=== PATIENT | female | born 1995 | race Caucasian/White ===

== ENCOUNTER 2016-12-16 08:41 | Emergency (ER) | payer OTHER ==
[~2016-12-16] VITALS: Ht 167.6 cm; Wt 56.2 kg
[2016-12-16 08:52] VITALS: Ht 167.6 cm; Wt 56.2 kg
[2016-12-16] MEDS ORDERED: SODIUM CHLORIDE 0.9% 1000ML 1,000 ML IV STA ×2 (09:29→13:32)
--- NOTE | 2016-12-16 09:36 | EMERGENCY ROOM VISIT NOTE ---
History First contact with patient: 09:08 Chief Complaint: FEVER Stated Complaint: FEVER, SIDE/BACK PAIN History of Present Illness The patient is a 21 year old female who presents to the Emergency Room with complaints of fever. The patient states that she has had a fever for the last 6 days. She states that she has had some arthralgias and myalgias. She states the fever has come and gone. She reports pain in the right side of the abdomen. She states that her urine is malodorous but she denies any dysuria, urgency, frequency. The patient was seen at urgent care and started on Tamiflu for influenza. The patient has not had any cough, earache, sore throat, runny nose. She has not had any diarrhea or vomiting. Review of Systems A 10 system review of systems was completed with positives and pertinent negatives listed in the HPI. Past Medical/Surgical History None Social History Smoking Status: Never Smoker Marital Status: single Housing Status: lives with family Occupation Status: [employer] student Current/Historical Medications Scheduled Escitalopram Oxalate (Lexapro), 10 MG PO DAILY Ethinyl Estrad/Norgestimate (Sprintec 28), 1 TAB PO DAILY Ondasetron Odt (Zofran Odt), 4 MG SL Q6H Oseltamivir Phosphate (Tamiflu), 75 MG PO BID Sulfa/Trimethoprim (Bactrim Ds 800MG/160MG), 1 TAB PO BID Scheduled PRN Ibuprofen Tab (Advil), 400 MG PO Q6H PRN for Pain or Fever Allergies Coded Allergies: No Known Allergies (Unverified , 12/16/16) Physical Exam Vital Signs Date Time Temp Pulse Resp B/P Pulse Ox O2 Delivery O2 Flow Rate FiO2 12/16/16 15:15 67 18 94/50 100 Room Air 12/16/16 14:28 63 18 90/44 100 Room Air 12/16/16 11:17 37.2 12/16/16 10:38 70 102/59 99 12/16/16 08:52 38.1 93 17 103/66 97 Room Air Physical Exam VITALS: Vitals are noted on the nurse's note and reviewed by myself. Vital signs stable. The patient is febrile with temperature 38.1F GENERAL: This is a 21-year-old female, in no acute distress, nondiaphoretic, well-developed well-nourished. SKIN: The skin was without rashes, erythema, edema, or bruising. There is no tenting of the skin. Capillary reflex less than 2 seconds. HEAD: Normocephalic atraumatic. EARS: The external ears are normal in appearance. EYES: Pupils equal round and reactive to light and accommodation. Conjunctivae without injection, sclerae without icterus. Extraocular movements intact. NOSE: Patent, turbinates without inflammation or discharge. MOUTH: Mucous membranes moist. Tonsils are not enlarged. Pharynx without erythema or exudate. Uvula midline. Airway patent. Tongue does not deviate. NECK: Supple without nuchal rigidity. No lymphadenopathy. No thyromegaly. Cervical spine is nontender. No JVD. HEART: Regular rate and rhythm without murmurs gallops or rubs. LUNGS: Clear to auscultation bilaterally without wheezes, rales or rhonchi. No retractions or accessory muscle use. ABDOMEN: Positive bowel sounds x 4. Soft, moderate right lower quadrant tenderness, without masses or organomegaly. Millan sign negative. MUSCULOSKELETAL: No muscle atrophy, erythema, or edema noted. Full range of motion in all extremities. Normal gait. Strength 5/5 throughout. NEURO: Patient was alert and oriented to person place and time. No focal neurological deficits. Medical Decision & Procedures ER Provider Diagnostic Interpretation: [~ rep ct add3]] ABDOMEN AND PELVIS CT WITH IV AND ORAL CONTRAST CT DOSE: 279.43 mGy.cm HISTORY: Right lower quadrant and right flank pain. TECHNIQUE: Multiaxial CT images of the abdomen and pelvis were performed following the use of intravenous and oral contrast. COMPARISON STUDY: None. FINDINGS: The lung bases are clear. The liver, gallbladder, spleen, pancreas, and adrenal glands are unremarkable. No renal stones or hydronephrosis. Mild right perinephric fat stranding as well as fat stranding surrounding the slightly thickened right renal pelvis. There are patchy areas of decreased enhancement within the right kidney. These findings are consistent with pyelonephritis. No retroperitoneal lymphadenopathy. The bladder, uterus, and ovaries are unremarkable. Moderate stool within the colon and rectum. Normal appendix. No bowel wall thickening or obstruction. IMPRESSION: 1. Above findings consistent with right-sided pyelonephritis. 2. No ureteral stones or hydronephrosis. 3. No bowel wall thickening or obstruction. 4. Normal appendix. Laboratory Results 12/16/16 09:39 Red Blood Count 4.15, Mean Corpuscular Volume 86.7, Mean Corpuscular Hemoglobin 29.2, Mean Corpuscular Hemoglobin Concent 33.6, Mean Platelet Volume 9.1, Neutrophils (%) (Auto) 79.2, Lymphocytes (%) (Auto) 10.9, Monocytes (%) (Auto) 9.4, Eosinophils (%) (Auto) 0.0, Basophils (%) (Auto) 0.2, Neutrophils # (Auto) 9.12, Lymphocytes # (Auto) 1.25, Monocytes # (Auto) 1.08, Eosinophils # (Auto) 0.00, Basophils # (Auto) 0.02 12/16/16 09:39 Test 12/16/16 09:02 12/16/16 09:39 Urine Color YELLOW Urine Appearance CLEAR (CLEAR) Urine pH 8.5 (4.5-7.5) Urine Specific [place] 1.010 (1.000-1.030) Urine Protein NEG (NEG) Urine Glucose (UA) NEG (NEG) Urine Ketones NEG (NEG) Urine Occult Blood TRACE (NEG) Urine Nitrite NEG (NEG) Urine Bilirubin NEG (NEG) Urine Urobilinogen NEG (NEG) Urine Leukocyte Esterase NEG (NEG) Urine RBC 0-4 /hpf (0-4) Urine WBC 5-10 /hpf (0-5) Urine Epithelial Cells 10-20 /lpf (0-5) Urine Bacteria 1+ (NEG) Urine Hyaline Casts 1-5 /lpf (0-5) Urine Test NEG (NEG) White Blood Count 11.50 K/uL (4.8-10.8) Red Blood Count 4.15 M/uL (4.2-5.4) Hemoglobin 12.1 g/dL (12.0-16.0) Hematocrit 36.0 % (37-47) Mean Corpuscular Volume 86.7 fL (80-100) Mean Corpuscular Hemoglobin 29.2 pg (25-34) Mean Corpuscular Hemoglobin Concent 33.6 g/dl (32-36) Platelet Count 311 K/uL (130-400) Mean Platelet Volume 9.1 fL (7.4-10.4) Neutrophils (%) (Auto) 79.2 % Lymphocytes (%) (Auto) 10.9 % Monocytes (%) (Auto) 9.4 % Eosinophils (%) (Auto) 0.0 % Basophils (%) (Auto) 0.2 % Neutrophils # (Auto) 9.12 K/uL (1.4-6.5) Lymphocytes # (Auto) 1.25 K/uL (1.2-3.4) Monocytes # (Auto) 1.08 K/uL (0.11-0.59) Eosinophils # (Auto) 0.00 K/uL (0-0.5) Basophils # (Auto) 0.02 K/uL (0-0.2) RDW Standard Deviation 41.4 fL (36.4-46.3) RDW Coefficient of Variation 12.9 % (11.5-14.5) Immature Granulocyte % (Auto) 0.3 % Immature Granulocyte # (Auto) 0.03 K/uL (0.00-0.02) Anion Gap 10.0 mmol/L (3-11) Est Creatinine Clear Calc Drug Dose 98.7 ml/min Estimated GFR () 122.2 Estimated GFR (Non- 105.4 BUN/Creatinine Ratio 10.7 (10-20) Calcium Level 8.6 mg/dl (8.5-10.1) Total Bilirubin 0.4 mg/dl (0.2-1) Aspartate Amino Transf (AST/SGOT) 11 U/L (15-37) Alanine Aminotransferase (ALT/SGPT) 18 U/L (12-78) Alkaline Phosphatase 75 U/L (45-117) Total Protein 6.8 gm/dl (6.4-8.2) Albumin 3.0 gm/dl (3.4-5.0) Globulin 3.8 gm/dl (2.5-4.0) Albumin/Globulin Ratio 0.8 (0.9-2) Lipase 86 U/L (73-393) Monoscreen NEG (NEG) Medications Administered Medications (Trade) Dose Ordered Sig/Beto Route Start Time Stop Time Status Last Admin Dose Admin Sodium Chloride 1,000 ml @ 999 mls/hr Q1H1M STAT IV 12/16/16 09:29 12/16/16 10:29 DC 12/16/16 09:42 999 MLS/HR Acetaminophen/ Empty Bag (Ofirmev IV/ Empty Iv Bag 100ml) 65 ml @ 260 mls/hr ONE STAT IV 12/16/16 09:54 12/16/16 10:08 DC 12/16/16 10:37 260 MLS/HR Trimethoprim/ Sulfamethoxazole (Septra Ds 800/ 160MG Tab) 1 tab NOW STAT PO 12/16/16 13:17 12/16/16 13:18 DC 12/16/16 14:19 1 TAB Ceftriaxone Sodium 1 gm 1 gm NOW STAT IV 12/16/16 13:32 12/16/16 13:34 DC 12/16/16 14:21 1 GM Sodium Chloride (Nss 1000ml) 1,000 ml @ 999 mls/hr Q1H1M STAT IV 12/16/16 13:32 12/16/16 14:32 DC 12/16/16 14:22 999 MLS/HR ED Course The patient was seen and examined. Previous visits were reviewed. The patient was febrile upon initial presentation. She is a white blood cell count of 11.5. She does not have any significant electrolyte abnormality. Lipase was not elevated. Urinalysis suggests possible urinary tract infection. A urine culture is pending. Urine test was negative. CT scan of the abdomen and pelvis with IV and oral contrast reveals right-sided pyelonephritis. The appendix is normal The patient was hydrated with normal saline She was given IV Tylenol She was given 1 oral Bactrim She was given 1 g IV Rocephin The patient was feeling significantly improved. She presents with right-sided lower abdominal pain. She reported foul smelling urine but no other urinary symptoms. She has had a fever. Her examination above evaluation suggest pyelonephritis. I had a lengthy discussion with the patient's mother. The patient's mother was concerned with possible etiologies such as mononucleosis or influenza. The patient has already been on Tamiflu. She does not have symptoms to suggest influenza with no upper respiratory symptoms. I advised her they would not likely change the outcome of today's visit. I also advised her that she does not have any symptoms of suggest mononucleosis. The patient' s mother still requests to have those tests done. I discussed this with the patient. She declines the Monospot and influenza. I did cancel these tests but the Monospot had already been run and was negative. The patient will be placed on Bactrim twice daily for 10 days. She'll be given a prescription for Zofran. She should return immediately with any vomiting, worsening pain or worsening symptoms. The case was discussed with Dr. Mayers who agrees with the assessment and treatment plan Medical Decision DIFFERENTIAL DIAGNOSIS: Hepatitis, cholecystitis, cholangitis, biliary colic, pancreatitis, pneumonia, subdiaphragmatic abscess, appendicitis, inguinal hernia , nephrolithiasis, inflammatory bowel disease, mesenteric adenitis, peptic ulcer disease, GERD, gastritis, pancreatitis, myocardial infarction, pericarditis, ruptured aortic aneurysm, appendicitis, gastroenteritis, bowel obstruction, splenic infarct, diverticulitis, mesenteric ischemia, metabolic, peritonitis, among others. Impression Primary Impression: Pyelonephritis Departure Information Dispostion Home / Self-Care Condition GOOD Prescriptions Ondasetron Odt (ZOFRAN ODT) 4 Mg Tab 4 MG SL Q6H for Nausea, #6 TAB Prov: Renee King PA-C 12/16/16 Sulfa/Trimethoprim (Bactrim Ds 800MG/160MG) Tab 1 TAB PO BID for 10 Days, #20 TAB Prov: Renee King PA-C 12/16/16 Referrals No Doctor, Assigned (PCP) Patient Instructions ED UTI Pyelonephritis Female, [facility] Additional Instructions Bactrim every 12 hours for 10 days Zofran as prescribed, as needed for nausea and vomiting Ibuprofen 600 mg every 6-8 hours for pain/fever Return to the emergency department with vomiting, worsening pain, persistent fevers or if you cannot keep the medication down as you may need admission and IV antibiotics if this occurs Otherwise, recheck with [facility] next week for a repeat urinalysis to ensure that the urine infection has resolved We will contact you in the next several days if the results of the culture of the urine indicates the need for change in treatment
[2016-12-16] MEDS ORDERED: OPTIRAY 320 IV PRN (09:45)
[2016-12-16] MEDS ORDERED: NF406 PO (09:45)
[2016-12-16] MEDS ORDERED: ESCI1TAB9 PO (09:46)
[2016-12-16] MEDS ORDERED: SPR28 PO (09:46)
[2016-12-16] MEDS ORDERED: IBUP-103 PO (09:47)
[2016-12-16] MEDS ORDERED: ACETAMINOPHEN IV 650 MG in EMPTY BAG 0 ML IV STA (09:54)
[2016-12-16 09:55] LABS: BASO % 0.2 %; BASO ABS # 0.02 K/uL (0-0.2); COMPLETE YES; IG% 0.3 %; LYMPH % 10.9 %; LYMPH ABS # 1.25 K/uL (1.2-3.4); MEAN CELL VOLUME 86.7 fL (80-100); MEAN CORPUSCULAR HEMOGLOBIN 29.2 pg (25-34); MEAN CORPUSCULAR HGB CONC 33.6 g/dl (32-36); MEAN PLATELET VOLUME 9.1 fL (7.4-10.4); MONO % 9.4 %; NEUT % 79.2 %; PLATELET COUNT 311 K/uL (130-400); RED BLOOD COUNT 4.15 M/uL (4.2-5.4)
[2016-12-16 10:11] LABS: BUN/CREATININE RATIO 10.7 (10-20); CALCIUM 8.6 mg/dl (8.5-10.1); CREATININE 0.8 mg/dl (0.60-1.20); POTASSIUM 3.7 mmol/L (3.5-5.1)
[2016-12-16 10:16] LABS: ALB/GLOB RATIO 0.8 (0.9-2)
[2016-12-16 11:11] LABS: URINE APPEARANCE CLEAR (CLEAR); URINE BILIRUBIN NEG (NEG); URINE COLOR YELLOW; URINE NITRITE NEG (NEG); URINE PH 8.5 (4.5-7.5); UROBILINOGEN NEG (NEG)
[2016-12-16 11:17] VITALS: TEMP 37.2
[2016-12-16 11:31] LABS: MANUAL MICROSCOPIC REQUIRED? YES; REVIEW REQ? NO
[2016-12-16 11:41] LABS: URINE BACTERIA 1+ (NEG); URINE RBC 0-4 /hpf (0-4)
[2016-12-16 11:42] LABS: ZZUR CULT IF INDIC CLEAN CATCH YES
--- NOTE | 2016-12-16 12:53 | DIAGNOSTIC IMAGING REPORT ---
ABDOMEN AND PELVIS CT WITH IV AND ORAL CONTRAST CT DOSE: 279.43 mGy.cm HISTORY: Right lower quadrant and right flank pain. TECHNIQUE: Multiaxial CT images of the abdomen and pelvis were performed following the use of intravenous and oral contrast. COMPARISON STUDY: None. FINDINGS: The lung bases are clear. The liver, gallbladder, spleen, pancreas, and adrenal glands are unremarkable. No renal stones or hydronephrosis. Mild right perinephric fat stranding as well as fat stranding surrounding the slightly thickened right renal pelvis. There are patchy areas of decreased enhancement within the right kidney. These findings are consistent with pyelonephritis. No retroperitoneal lymphadenopathy. The bladder, uterus, and ovaries are unremarkable. Moderate stool within the colon and rectum. Normal appendix. No bowel wall thickening or obstruction. IMPRESSION: 1. Above findings consistent with right-sided pyelonephritis. 2. No ureteral stones or hydronephrosis. 3. No bowel wall thickening or obstruction. 4. Normal appendix. Electronically signed by: Michael Knott M.D. 12/16/2016 12:51 PM Dictated Date/Time: 12/16/2016 12:42 PM
[2016-12-16] MEDS ORDERED: SULFAMETHOXAZOLE/TRIMETHOPRIM DS 800/160MG TAB PO STA (13:17)
[2016-12-16] MEDS ORDERED: CEFTRIAXONE SOD INJ 1 GM ADDVIAL IV STA (13:32)
[2016-12-16] MEDS ORDERED: ONDA4TAB10 SL (14:34)
[2016-12-16] MEDS ORDERED: SULF800T23 PO (14:34)
[2016-12-16 15:15] VITALS: BP 94/50; PULSE 67; O2SAT 100
== END 2016-12-16 15:32 | disposition home or self-care (01) ==
LOC: C.EDB 08:42
DX: N12 Tubulo-interstitial nephritis, not specified as acute or chronic (principal); Z79.899 Other long term (current) drug therapy